=== PATIENT | male | born 1995 | race African-American/Black ===

== ENCOUNTER 2021-06-17 22:35 | Emergency (ER) | payer OTHER ==
[~2021-06-17] VITALS: Ht 180.3 cm; Wt 81.7 kg
[2021-06-17] MEDS ORDERED: PROAIR HFA8.5 GM INH (22:45)
[2021-06-17 23:16] LABS: ABSOLUTE NEUTROPHILS 15.1 thou/uL (1.4-8.2); BASOPHILS 0.5 % (0.0-2.0); EOSINOPHILS 0.2 % (0.0-3.0); HEMATOCRIT 45.9 % (42.0-52.0); HEMOGLOBIN 15.7 gm/dL (14.0-18.0); LYMPHOCYTES 8.8 % (24.0-44.0); MCH 29.2 pg (26.0-34.0); MCHC 34.1 g/dL (28.0-37.0); MCV 85.6 fL (80.0-100.0); PLATELET COUNT 292 thou/uL (150-400); POLYS 82.5 % (36.0-66.0); RBC 5.36 mil/uL (4.50-6.00); RDW 12.4 % (10.5-14.5); WBC 18.3 thou/uL (4.0-11.0)
[2021-06-17 23:35] LABS: CALCIUM 9.8 mg/dL (8.5-10.1); CREATININE 1.2 mg/dL (0.7-1.3)
[2021-06-18] MEDS ORDERED: CLEOCIN HCL300 MG PO (02:08)
--- NOTE | 2021-06-20 10:38 | O ---
[facility] [place] [address] [place] [address] OPERATIVE REPORT Name: MADELIN MURILLO Room #: DEP Armida#: [id number] Admission: 06/17/21 Attend Phys: Discharge: 06/18/21 Date of : 89 Report #: [id number] THIS REPORT FOR: cc: NO FAMILY PHYSICIAN or PCP NO FAMILY PHYSICIAN or PCP Jerry Lacey MD ~ DATE OF SERVICE: 06/18/2021 PREPROCEDURE DIAGNOSIS: Left peritonsillar abscess. POSTOPERATIVE DIAGNOSIS: Left peritonsillar abscess. PROCEDURE PERFORMED: Incision and drainage of left peritonsillar abscess. ANESTHESIA: Topical. ESTIMATED BLOOD LOSS: 2 mL. SPECIMENS: None. COMPLICATIONS: None. ASSISTANTS: None. INDICATIONS FOR THE PROCEDURE: The patient is a 26-year-old male with an approximately 3-4 day history of significant left-sided throat pain and ear pain and difficulty opening his jaw. He was seen in the Emergency Department and subsequently diagnosed with a multiloculated approximately 2.1 x 3.2 cm left peritonsillar abscess. The patient was verbally consented and agreed to proceed with the procedure as listed above. DESCRIPTION OF PROCEDURE: Starting first, the patient's left tonsil and soft palate were topically anesthetized using Hurricaine spray. After this was allowed to sit for several minutes of time, a stab incision was made in the superolateral aspect of the soft palate just above the superior pole of the left palatine tonsil with a #11 blade with immediate return of keaton purulence. A Yankauer tip suction was inserted into the abscess cavity followed by curved Hannah clamp, spreading of the multiloculated cavity to further liberate additional purulence. This was then suctioned free. The patient was allowed to gargle and spit ice water x 10 mouthfuls followed by repeat investigation, which did not reveal any additional keaton purulence. At this point, the procedure was concluded. All instrument count was correct and the patient tolerated the procedure well with no complications. DISPOSITION: The patient can be discharged from the Emergency Department as the Emergency Department provider sees fit. He should take clindamycin 300 mg 4 [facility] [address] [place] [address] OPERATIVE REPORT Name: MADELIN MURILLO Room #: DEP MARSHA Huffman#: [id number] Admission: 06/17/21 Attend Phys: Discharge: 06/18/21 Date of : 89 Report #: [id number] times per day for the next 10 days and he should be seen in followup in approximately 2 weeks' time. <ELECTRONICALLY SIGNED> By: Jerry Lacey MD 06/20/21 [id number] Jerry Lacey MD /nt
== END 2021-06-18 02:30 | disposition home or self-care (01) ==
LOC: ER 22:35
PROVIDERS: Student in an Organized Health Care Education/Training Program
DX: J36 Peritonsillar abscess (principal); Z20.822 Contact with and (suspected) exposure to COVID-19; J45.909 Unspecified asthma, uncomplicated; Z79.51 Long term (current) use of inhaled steroids

== ENCOUNTER 2021-07-18 16:16 | Emergency (ER) | payer OTHER ==
[~2021-07-18] VITALS: Ht 180.3 cm; Wt 79.4 kg
[~2021-07-18 16:16] MED LIST: CLEOCIN HCL300 MG PO; PROAIR HFA8.5 GM INH
[2021-07-18 18:08] LABS: HEMOGLOBIN 15.6 gm/dL (14.0-18.0); MCHC 33.3 g/dL (28.0-37.0)
[2021-07-18 18:10] LABS: CALCIUM 9.3 mg/dL (8.5-10.1); HEMATOCRIT 46.9 % (42.0-52.0); MCH 28.9 pg (26.0-34.0); MCV 86.7 fL (80.0-100.0); POTASSIUM 4.4 mmol/L (3.5-5.1); RBC 5.41 mil/uL (4.50-6.00); RDW 13.4 % (10.5-14.5); WBC 8.2 thou/uL (4.0-11.0)
[2021-07-18 18:17] LABS: ALBUMIN 3.8 g/dL (3.4-5.0); TOTAL BILIRUBIN 0.5 mg/dL (0.2-1.0); TOTAL PROTEIN 7.5 g/dL (6.4-8.2)
[2021-07-18] MEDS ORDERED: AUGMENTIN 875-1 EACH PO (19:14)
[2021-07-18 19:33] VITALS: BP 127/87
== END 2021-07-18 19:37 | disposition home or self-care (01) ==
LOC: ER 16:16
PROVIDERS: Nurse Practitioner Family
DX: J36 Peritonsillar abscess (principal); J45.909 Unspecified asthma, uncomplicated; Z79.51 Long term (current) use of inhaled steroids; Z91.010 Allergy to peanuts